=== PATIENT | female | born 1950 | race Caucasian/White ===

== ENCOUNTER 2016-11-12 22:43 | Emergency (ER) | payer OTHER | END 2016-11-13 00:18 | disposition home or self-care (01) | LOC: ER 22:43 | DX: I47.1 Supraventricular tachycardia (principal); R07.89 Other chest pain; R42 Dizziness and giddiness; F32.9 Major depressive disorder, single episode, unspecified; F41.9 Anxiety disorder, unspecified; E78.5 Hyperlipidemia, unspecified; I10 Essential (primary) hypertension; F17.210 Nicotine dependence, cigarettes, uncomplicated; Z90.710 Acquired absence of both cervix and uterus; Z79.82 Long term (current) use of aspirin; Z79.899 Other long term (current) drug therapy; Z88.5 Allergy status to narcotic agent; Z88.8 Allergy status to other drugs, medicaments and biological substances | CPT/HCPCS: 36415; 96361; 96374; J0153 ==

== ENCOUNTER 2017-01-01 23:55 | Emergency (ER) | payer OTHER | END 2017-01-02 05:58 | disposition home or self-care (01) | LOC: ER 23:55 | DX: I47.1 Supraventricular tachycardia (principal); J44.9 Chronic obstructive pulmonary disease, unspecified; D72.829 Elevated white blood cell count, unspecified; I10 Essential (primary) hypertension; F41.9 Anxiety disorder, unspecified; F32.9 Major depressive disorder, single episode, unspecified; F17.210 Nicotine dependence, cigarettes, uncomplicated; Z90.710 Acquired absence of both cervix and uterus; Z98.890 Other specified postprocedural states; Z79.899 Other long term (current) drug therapy; Z79.82 Long term (current) use of aspirin; Z88.5 Allergy status to narcotic agent; Z88.8 Allergy status to other drugs, medicaments and biological substances | CPT/HCPCS: 36415; 96374; 96375; J0153 ==